=== PATIENT | male | born 1930 | race African-American/Black ===

== ENCOUNTER 2016-08-18 00:20 | Inpatient (IN) | payer MEDICARE ==
[2016-08-18] VITALS (7 sets, daily range): BP systolic 117–146; BP diastolic 71–88
[~2016-08-18] VITALS: Ht 170.2 cm; Wt 65.8 kg
[2016-08-18 01:07] LABS: BASOPHILS % (AUTO) 0.5 % (0.0-2.0); EOSINOPHILS % (AUTO) 1.5 % (0.0-3.0); LYMPHOCYTES % (AUTO) 14.4 % (20.0-45.0); MEAN CORPUSCULAR HEMOGLOBIN 28.8 PG (27.0-31.0); MEAN CORPUSCULAR HGB CONC 32.4 G/DL (32.0-36.0); MEAN CORPUSCULAR VOLUME 89 FL (80-99); MEAN PLATELET VOLUME 7.8 FL (6.5-10.1); MONOCYTES % (AUTO) 14.6 % (1.0-10.0); PLATELET COUNT 174 K/UL (150-450); RED BLOOD COUNT 4.27 M/UL (4.70-6.10); RED CELL DISTRIBUTION WIDTH 12.1 % (11.6-14.8); WHITE BLOOD COUNT 5.8 K/UL (4.8-10.8)
[2016-08-18 01:21] LABS: ALANINE AMINOTRANSFERASE 13 U/L (3-41); ALBUMIN/GLOBULIN RATIO 1.1 (1.0-2.7); ANION GAP 15 (5-15); ASPARTATE AMINO TRANSFERASE 15 U/L (5-40); CALCIUM 9.2 mg/dL (8.6-10.2); CARBON DIOXIDE 27 mEQ/L (20-30); CHLORIDE 100 mEQ/L (98-107); HEMOLYSIS 2; POTASSIUM 4.1 mEQ/L (3.4-4.9); SODIUM 142 mEQ/L (135-145); TOTAL PROTEIN 6.8 g/dL (6.6-8.7)
[2016-08-18] MEDS ORDERED: UNOBMED (01:28)
[2016-08-18 01:37] LABS: TROPONIN I < 0.30 ng/mL (<=0.30)
--- NOTE | 2016-08-18 04:20 | Emergency Room Report ---
History of Present Illness General Chief Complaint: Chest Pain Source: Patient Present Illness HPI 86-year-old male presents to ED complaining of chest pain. Patient states chest pain started yesterday afternoon. Pressure-like, substernal, nonradiating. Lasting for several days then subsiding. Patient denies any chest pain at this time. Given aspirin by EMS. Denies smoking or drug use. No other aggravating or relieving factors. Denies any other associated symptoms Allergies: Coded Allergies: No Known Allergies (Verified , 01/25/10) Patient History Past Medical History: DM, HTN Past Surgical History: none Pertinent Family History: none Social History: Denies: alcohol use, drug use, smoking Immunizations: UTD Reviewed Nursing Documentation: PMH: Agreed, PSxH: Agreed Nursing Documentation-PMH Hx Cardiac Problems: No Hx Hypertension: Yes Hx Pacemaker: No Hx Asthma: No Hx COPD: No Hx Diabetes: Yes Hx Cancer: Yes - Prostate Hx Gastrointestinal Problems: Yes - Acid Reflux Hx Dialysis: No Hx Neurological Problems: No Hx Cerebrovascular Accident: No Hx Seizures: No Review of Systems All Other Systems: negative except mentioned in HPI Physical Exam Vital Signs Date Time Temp Pulse Resp B/P Pulse Ox O2 Delivery O2 Flow Rate FiO2 08/18/16 00:26 97.9 67 17 136/78 98 Room Air Sp02 EP Interpretation: reviewed, normal General Appearance: no apparent distress, alert, GCS 15, non-toxic Head: normocephalic, atraumatic Eyes: bilateral eye PERRL, bilateral eye normal inspection ENT: hearing grossly normal, normal pharynx, no angioedema, normal voice Neck: full range of motion, supple/symm/no masses Respiratory: chest non-tender, lungs clear, normal breath sounds, speaking full sentences Cardiovascular #1: regular rate, rhythm, no edema Cardiovascular #2: 2+ carotid (R), 2+ carotid (L), 2+ radial (R), 2+ radial (L) , 2+ dorsalis pedis (R), 2+ dorsalis pedis (L) Gastrointestinal: normal bowel sounds, non tender, soft, non-distended, no guarding, no rebound Rectal: deferred Genitourinary: normal inspection, no CVA tenderness Musculoskeletal: back normal, gait/station normal, normal range of motion, non- tender Neurologic: alert, oriented x3, responsive, motor strength/tone normal, sensory intact, speech normal Psychiatric: judgement/insight normal, memory normal, mood/affect normal, no suicidal/homicidal ideation Reflexes: 3+ bicep (R), 3+ bicep (L), 3+ tricep (R), 3+ tricep (L), 3+ knee (R) , 3+ knee (L) Skin: normal color, no rash, warm/dry, well hydrated Lymphatic: no adenopathy Medical Decision Making Diagnostic Impression: Primary Impression: ACS (acute coronary syndrome) ER Course Hospital Course 86-year-old male presents ED complaining of intermittent substernal chest pain Differential diagnoses include: CT/unstable angina, contusion, muscle strain, PTX, rib fracture Clinical course Patient placed on stretcher. on director of cardiac cath lab. After initial history and physical I ordered labs, EKG, chest x-ray labs reviewed- no leukocytosis, hb/hct stable, electrolytes ok, trop negative EKG - NSR, no acute ischemic changes Chest x-ray- no acute process Case discussed with Dr. Andres and he agreed to accept the patient to his service for further care and support I. I feel this is a highly complex case requiring extensive working including EKG/Rhythm strip, Xray/CT/US, Blood/urine lab work, repeat exams while in ED, and administration of strong opiates/narcotics for pain control, admission to hospital or close patient follow up. Diagnosis - ACS admitted to telemetry in serious condition Labs Test 08/18/16 00:54 White Blood Count 5.8 K/UL (4.8-10.8) Red Blood Count 4.27 M/UL (4.70-6.10) Hemoglobin 12.3 G/DL (14.2-18.0) Hematocrit 38.0 % (42.0-52.0) Mean Corpuscular Volume 89 FL (80-99) Mean Corpuscular Hemoglobin 28.8 PG (27.0-31.0) Mean Corpuscular Hemoglobin Concent 32.4 G/DL (32.0-36.0) Red Cell Distribution Width 12.1 % (11.6-14.8) Platelet Count 174 K/UL (150-450) Mean Platelet Volume 7.8 FL (6.5-10.1) Neutrophils (%) (Auto) 69.0 % (45.0-75.0) Lymphocytes (%) (Auto) 14.4 % (20.0-45.0) Monocytes (%) (Auto) 14.6 % (1.0-10.0) Eosinophils (%) (Auto) 1.5 % (0.0-3.0) Basophils (%) (Auto) 0.5 % (0.0-2.0) Sodium Level 142 mEQ/L (135-145) Potassium Level 4.1 mEQ/L (3.4-4.9) Chloride Level 100 mEQ/L (98-107) Carbon Dioxide Level 27 mEQ/L (20-30) Anion Gap 15 (5-15) Blood Urea Nitrogen 17 mg/dL (7-23) Creatinine 1.0 mg/dL (0.7-1.2) Estimat Glomerular Filtration Rate mL/min (>60) Glucose Level 153 mg/dL (74-106) Calcium Level 9.2 mg/dL (8.6-10.2) Total Bilirubin 0.3 mg/dL (0.0-1.2) Aspartate Amino Transf (AST/SGOT) 15 U/L (5-40) Alanine Aminotransferase (ALT/SGPT) 13 U/L (3-41) Alkaline Phosphatase 78 U/L (40-129) Total Creatine Kinase 140 U/L (38-174) Troponin I < 0.30 ng/mL (<=0.30) Pro-B-Type Natriuretic Peptide 94 pg/mL (0-450) Total Protein 6.8 g/dL (6.6-8.7) Albumin 3.6 g/dL (3.5-5.2) Globulin 3.2 g/dL Albumin/Globulin Ratio 1.1 (1.0-2.7) EKG Diagnostic Results Rate: normal Rhythm: NSR ST Segments: no acute changes ASA given to the pt in ED: No - given by ems Rhythm Strip Diag. Results EP Interpretation: yes Rhythm: NSR, no PVC's, no ectopy Chest X-Ray Diagnostic Results EP Interpretation: Yes Findings: no consolidation, no effusion, no pneumothorax, no acute cardiopulmonary disease Number of Views: 1 Last Vital Signs Date Time Temp Pulse Resp B/P Pulse Ox O2 Delivery O2 Flow Rate FiO2 08/18/16 03:45 97.5 66 18 145/75 98 Room Air Status: improved Disposition: ADMITTED INPATIENT Condition: Serious Referrals: NON PHYSICIAN (PCP) ALIREZA MCGREGOR M.D. Aug 18, 2016 04:20
[2016-08-18] MEDS ORDERED: Zolpidem 5mg tab ORAL PRN (05:45)
[2016-08-18 05:48] LABS: CKMB 3.7 ng/mL (< 6.7)
[2016-08-18] MEDS: NovoLOG Insulin Flexpen SUBQ SCH ×2 (06:30→12:47)
[2016-08-18] MEDS: Nitroglycerin 2% oint pkt TOPIC SCH ×3 (06:56→21:38)
[2016-08-18] MEDS: Aspirin Baby 81mg NG SCH (08:43)
[2016-08-18] MEDS: Atenolol 25mg tab ORAL SCH ×2 (08:43→18:55)
[2016-08-18] MEDS: Heparin 5000 units/ml inj SUBQ SCH ×2 (08:45→21:38)
[2016-08-18 09:20] LABS: CHOLESTEROL/HDL RATIO 2.2 (3.3-4.4)
[2016-08-18 09:21] LABS: TROPONIN I < 0.30 ng/mL (<=0.30)
--- NOTE | 2016-08-18 10:06 | Diagnostic Imaging Report ---
Indication: FALL, pain Technique: spiral acquisitions obtained through the brain. Angled axial and coronal 5 x 5 mm slices were reconstructed. No IV contrast utilized. Radiation dose was minimized using automated exposure control Total dose length product 1305 mGycm. CTDIvol(s) 70 mGy Comparison: none FINDINGS: No acute hemorrhage or edema. No mass effect or midline shift. There is age-related enlargement of the ventricles and extra axial CSF spaces. There is periventricular deep white matter ischemic change. Normal rodriges-white differentiation. Visualized orbits are unremarkable. There is mucosal disease of the bilateral ethmoid and right maxillary sinuses. Intact calvarium. IMPRESSION: Chronic and age-related changes. Negative for acute intracranial bleed or mass effect This agrees with the preliminary interpretation provided overnight by [facility] teleradiology service. The CT scanner at [facility] is accredited by the [employer] and the scans are performed using protocols designed to limit radiation exposure to as low as reasonably achievable to attain images of sufficient resolution adequate for diagnostic evaluation
[2016-08-18] MEDS ORDERED: AMLODIPINE BESYL5 MG ORAL (13:58)
[2016-08-18] MEDS ORDERED: PRAVASTATIN SOD20 M1 ORAL (14:08)
[2016-08-18] MEDS ORDERED: CETIRIZINE HCL10 MG PO (14:08)
[2016-08-18] MEDS ORDERED: LISINOPRIL5 MG ORAL (14:08)
[2016-08-18] MEDS ORDERED: OXYBUTYNIN CHLOR5 M1 ORAL (14:08)
[2016-08-18] MEDS ORDERED: MECLIZINE HCL12.5 MG ORAL (14:08)
[2016-08-18] MEDS ORDERED: GABAPENTIN300 MG ORAL (14:08)
[2016-08-18] MEDS ORDERED: OMEPRAZOLE20 M3 ORAL (14:08)
[2016-08-18] MEDS ORDERED: BACLOFEN10 MG ORAL (14:08)
[2016-08-18 18:08] LABS: TROPONIN I < 0.30 ng/mL (<=0.30)
--- NOTE | 2016-08-18 20:28 | History and Physical Report ---
DATE OF ADMISSION: 08/18/2016 REASON FOR ADMISSION: Chest pain, possible acute coronary syndrome. HISTORY OF PRESENT ILLNESS: The patient is an 86-year-old male who appears somewhat younger than stated age. The patient presents with chest pain starting yesterday. The patient describes the pain as pressure like, substernal, but nonradiating. The patient notes that the pain has been present for several days. Denies any shortness of breath. Denies any hemoptysis. Denies any cough or sputum. The patient does not have any issue of coronary artery disease. He actually is able to live alone and independently. The patient denies any prior cardiac interventions. He does have risk factors including diabetes and hypertension. Does not currently smoke. PAST MEDICAL HISTORY: Notable for diabetes and hypertension. The patient also has history of prostate cancer, history of acid reflux. MEDICATIONS: Reviewed. ALLERGIES: Reviewed. SOCIAL HISTORY: As mentioned, the patient does not smoke or drink. Lives independently by himself. FAMILY HISTORY: Otherwise noncontributory. REVIEW OF SYSTEMS: Otherwise, negative with the exception of the above. PHYSICAL EXAMINATION: GENERAL: The patient is a well-developed male, otherwise comfortable but the patient does have cough. VITAL SIGNS: Blood pressure 142/88, pulse 62, respiratory rate 20, saturation 95% on room air, temperature 97.2. HEENT: Overall negative. Extraocular movements are grossly intact. Oropharynx otherwise moist. NECK: Supple. No jugular venous distention. LUNGS: Otherwise clear. No rhonchi or wheezes. CARDIAC: Normal S1 and S2. Regular rate and rhythm without murmurs, rubs, or gallop. ABDOMEN: Soft, nontender, and nondistended. EXTREMITIES: No cyanosis or clubbing. No significant edema. NEUROLOGIC: Grossly nonfocal and alert. LABORATORY DATA: Reviewed. CBC notably for hemoglobin 12.3, otherwise fairly benign. Electrolytes fairly normal however blood sugar 153. Troponin is negative. EKG noted and reviewed and at present the patient appears to be in normal sinus rhythm, no acute changes. Chest x-ray no acute changes. IMPRESSION: 1. Chest pain, possible acute coronary syndrome. 2. History of diabetes and hypertension. 3. Evidence of mild cough. RECOMMENDATIONS: Resume home medications. Beta-blockers, nitrates, subcutaneous heparin and aspirin. Serial troponins. Followup EKG. Obtain cardiology evaluation. Obtain blood sugar management and follow clinically. If cleared by Cardiology, we will proceed with discharge planning. Sebastien Andres M.D. DR: Alejandro JOB#: [id number] CC:
--- NOTE | 2016-08-18 23:57 | Cardiology Report ---
APPROVED REPORT EKG Measurement Heart [id number] Sinus rhythm with sinus arrhythmia with occasional premature ventricular complexes Left axis deviation Nonspecific T wave abnormality Abnormal ECG
--- NOTE | 2016-08-18 23:58 | Cardiology Report ---
APPROVED REPORT EKG Measurement Heart [id number] Normal sinus rhythm with sinus arrhythmia Left axis deviation Pulmonary disease pattern Abnormal ECG
[2016-08-19] VITALS: BP 141/79
[2016-08-19 01:00] LABS: TROPONIN I < 0.30 ng/mL (<=0.30)
[2016-08-19 04:00] VITALS: BP 125/76
--- NOTE | 2016-08-19 04:59 | Consultation ---
DATE OF CONSULTATION: 08/18/2016 CARDIOLOGY CONSULTATION REQUESTING PHYSICIAN: Sebastien Andres M.D. REASON FOR CONSULTATION: Acute coronary syndrome. HISTORY OF PRESENT ILLNESS: This is an 86-year-old male, who presented to the emergency room with one day of recurring chest pressure that he described as of an elephant standing on his chest pain. The pain is recurrent, not persistent and resolved in the emergency room with nitroglycerin and morphine. The patient denied any associated shortness of breath. No recent upper respiratory infection, cough, or sputum production. No diuresis. He denies any known history of coronary artery disease. PAST MEDICAL HISTORY: Coronary risk factors include type 2 diabetes mellitus and hypertension. There is also history of prostate cancer and gastroesophageal reflux disease. MEDICATIONS: Prior to admission, reviewed and reconciled. ALLERGIES: None known. SOCIAL HISTORY: Negative for smoking, alcohol, or substance abuse. REVIEW OF SYSTEMS: No fevers or chills. No cough or sputum production. No history of asthma. No history of blood clotting. No history of irregular heartbeats, rheumatic heart disease, or prior heart attack. He does have hypertension well controlled. There is no history of change in bowel habits. He does have a history of prostate cancer. There is no history of seizures or stroke. He denies history of thyroid disorder. His diabetes is managed with oral therapy and he does not know his cholesterol level. PHYSICAL EXAMINATION: GENERAL: The patient is a well-developed, well-nourished, appears younger than stated age. VITAL SIGNS: Blood pressure 142/88, pulse 62, respirations 20, and afebrile. HEENT: Normocephalic and atraumatic. Arcus senilis. Conjunctivae are pink. Sclerae are anicteric. Oropharynx is clear. Mucous membranes are moist. NECK: Supple. Jugular venous pressure is normal. LUNGS: Clear. Carotid upstrokes without delay. No bruits. CARDIAC: Regular rhythm and rate. Normal S1 and S2 with a fourth heart sound. A 1/6 early systolic apical murmur. ABDOMEN: Soft and nontender. EXTREMITIES: Good pulses. No edema. NEUROLOGIC: Nonfocal. LABORATORY AND DIAGNOSTIC DATA: Troponin is negative. EKG sinus rhythm with nonspecific ST changes. Chemistry panel is within normal limits with the exception of glucose of 153. IMPRESSION: 1. Acute coronary syndrome. 2. Hypertension. 3. Type 2 diabetes mellitus. PLAN: 1. Cardiac monitoring. 2. Nasal oxygen. 3. Serial troponins. 4. Oral aspirin. 5. Beta blockade. 6. Topical nitrates. 7. Advance antihypertensive. 8. Echocardiogram will likely pursue noninvasive assessment of coronary flow reserve in order to risk stratify and guide long-term treatment even if noninvasive course of therapy is preferred. Speedy Valentin M.D. DR: JOVANA JOB#: [id number] CC:
[2016-08-19] MEDS: Nitroglycerin 2% oint pkt TOPIC SCH ×2 (06:25→13:24)
[2016-08-19 07:39] VITALS: BP 146/80
--- NOTE | 2016-08-19 08:06 | Diagnostic Imaging Report ---
Indication: Chest pain Technique: One view of the chest Comparison: 05/26/2014 Findings: The heart is enlarged with a left ventricular hypertrophy configuration. Aorta is tortuous ectatic and calcified. Upper mediastinum is unremarkable. There are atelectatic changes at the left lateral lung base. No significant change otherwise Impression: Left basilar atelectasis. No acute process otherwise Cardiomegaly
[2016-08-19 08:16] LABS: ALANINE AMINOTRANSFERASE 10 U/L (3-41); ALBUMIN/GLOBULIN RATIO 1.1 (1.0-2.7); ANION GAP 12 (5-15); ASPARTATE AMINO TRANSFERASE 12 U/L (5-40); CARBON DIOXIDE 28 mEQ/L (20-30); CHLORIDE 101 mEQ/L (98-107); CREATININE 0.9 mg/dL (0.7-1.2); HEMOLYSIS 5; MAGNESIUM 1.8 mg/dL (1.7-2.5); SODIUM 141 mEQ/L (135-145); TOTAL PROTEIN 6.5 g/dL (6.6-8.7)
[2016-08-19] MEDS: Heparin 5000 units/ml inj SUBQ SCH ×2 (09:00→20:12)
[2016-08-19] MEDS: Aspirin Baby 81mg NG SCH (09:12)
[2016-08-19] MEDS: Atenolol 25mg tab ORAL SCH ×2 (09:13→20:11)
[2016-08-19 11:15] VITALS: BP 144/75
--- NOTE | 2016-08-19 11:27 | Cardiology Report ---
APPROVED REPORT EXAM: Two-dimensional and M-mode echocardiogram with Doppler and color Doppler. INDICATION Angina Pectoris M-Mode DIMENSIONS IVSd1.0 (0.7-1.1cm)Left Atrium (MM)4.2 (1.6-4.0cm) LVDd4.7 (3.5-5.6cm)Aortic Root3.2 (2.0-3.7cm) PWd1.2 (0.7-1.1cm)Aortic Cusp Exc.1.7 (1.5-2.0cm) LVDs3.3 (2.5-4.0cm) PWs1.6 cm Technically difficult study due to poor acoustic windows. Study quality precludes accurate assessment of regional wall motion. Normal left ventricular chamber size, systolic function and wall motion. Left ventricular ejection fraction estimated to be 55 %. No evidence of ventricular hypertrophy No evidence of pericardial fat or effusion. Mild right atrial enlargement. Right ventricular chamber size is within normal limits. Left atrial chamber size is within normal limits. Mild focal aortic valve sclerosis with adequate cusp excursion. Mildly thickened mitral valve leaflets with normal excursion. Mild mitral annulus and aortic root calcification. Normal pulmonic valve structure. Normal tricuspid valve structure. Subcostal views not obtainable. A color flow and spectral Doppler study was performed and revealed: Trace aortic regurgitation. Mild to moderate mitral regurgitation. Mitral diastolic velocities suggest reduced left ventricular relaxation (Grade I). Mild tricuspid regurgitation. Tricuspid systolic velocities suggests peak right ventricular systolic pressure of 46 mmHg, consistent with moderate pulmonary hypertension. Trace pulmonic regurgitation present.
--- NOTE | 2016-08-19 11:42 | General Progress Note ---
Assessment/Plan Assessment/Plan IMPRESSION: 1. Chest pain, possible acute coronary syndrome. 2. History of diabetes and hypertension. 3. Evidence of mild cough with improvement 4. pulmonary hypertension PLAN care noted defer to cardiology possible stress vs home discharge troponins noted tele stable all reviewed with patient impression, plan, and exam edited and reviewed in detail care discussed with RN Subjective Allergies: Coded Allergies: No Known Allergies (Verified , 01/25/10) Subjective no chest pain at present comfortable and able to ambulate Objective Last 24 Hour Vital Signs Date Time Temp Pulse Resp B/P Pulse Ox O2 Delivery O2 Flow Rate FiO2 08/19/16 11:15 98.1 65 20 144/75 97 Room Air 08/19/16 09:55 97 Nasal Cannula 2.0 28 08/19/16 09:55 Nasal Cannula 2.0 28 08/19/16 09:13 66 146/80 08/19/16 08:25 66 08/19/16 07:39 97.7 66 20 146/80 100 Nasal Cannula 2.0 08/19/16 06:25 158/87 08/19/16 04:00 62 08/19/16 04:00 97.9 64 18 125/76 95 Room Air 08/19/16 00:00 97.9 58 16 141/79 95 Room Air 08/19/16 00:00 64 08/18/16 21:38 144/84 08/18/16 20:00 61 08/18/16 20:00 97.7 61 20 144/84 96 Nasal Cannula 2.0 08/18/16 19:48 98 Nasal Cannula 2.0 28 08/18/16 19:48 Nasal Cannula 2.0 28 08/18/16 18:55 63 140/73 08/18/16 16:00 59 08/18/16 16:00 97.4 63 20 140/73 98 Room Air 08/18/16 13:34 117/73 08/18/16 12:05 89 Intake and Output 08/18/16 08/19/16 19:00 07:00 Intake Total 120 ml 300 ml Output Total 400 ml 1700 ml Balance -280 ml -1400 ml Intake Oral 120 ml 300 ml Output Urine Total 400 ml 1700 ml Laboratory Tests 08/18/16 16:00: Troponin I < 0.30 08/19/16 00:25: Troponin I < 0.30 08/19/16 06:40: Sodium Level 141, Potassium Level 4.0, Chloride Level 101, Carbon Dioxide Level 28, Anion Gap 12, Blood Urea Nitrogen 11, Creatinine 0.9, Estimat Glomerular Filtration Rate , Glucose Level 125H, Calcium Level 9.0, Magnesium Level 1.8, Total Bilirubin 0.2, Aspartate Amino Transf (AST/SGOT) 12, Alanine Aminotransferase (ALT/SGPT) 10, Alkaline Phosphatase 78, Pro-B-Type Natriuretic Peptide 304, Total Protein 6.5L, Albumin 3.5, Globulin 3.0, Albumin/Globulin Ratio 1.1, Thyroid Stimulating Hormone (TSH) 1.210 Height (Feet): 5 Height (Inches): 7.00 Weight (Pounds): 145 Objective GENERAL: The patient is a well-developed male, otherwise comfortable but the patient does have cough. HEENT: Overall negative. Extraocular movements are grossly intact. Oropharynx otherwise moist. NECK: Supple. No jugular venous distention. LUNGS: Otherwise clear. No rhonchi or wheezes. CARDIAC: Normal S1 and S2. Regular rate and rhythm without murmurs, rubs, or gallop. ABDOMEN: Soft, nontender, and nondistended. EXTREMITIES: No cyanosis or clubbing. No significant edema. NEUROLOGIC: Grossly nonfocal and alert. ambulatory HEATHER CLOUD Aug 19, 2016 11:42
[2016-08-19] MEDS ORDERED: Lisinopril 20mg tab ORAL ONE (14:00)
[2016-08-19 16:00] VITALS: BP 156/79
[2016-08-19] MEDS: Azithromycin 500 MG in D5W 275 ML IV SCH (16:06)
[2016-08-19] MEDS: DuoNeb 0.5-3(2.5)mg/3ml neb HHN SCH ×2 (20:54→22:38)
[2016-08-20] VITALS: BP 146/72
--- NOTE | 2016-08-20 02:08 | Progress Note ---
DATE: 08/19/2016 CARDIOLOGY PROGRESS NOTE SUBJECTIVE: The patient has congestion and cough. He notes chest pain with cough. Monitored rhythm sinus. OBJECTIVE: GENERAL: Afebrile. VITAL SIGNS: Blood pressure 144/75, pulse 65, and respirations 20. LUNGS: Coarse breath sounds with rhonchi. HEART: Regular rhythm and rate. Normal S1 and S2 with a fourth heart sound. ABDOMEN: Soft and nontender. EXTREMITIES: No edema. DIAGNOSTIC DATA: Echocardiogram showed normal ejection fraction, mild mitral regurgitation, and pulmonary hypertension. Troponin is negative. IMPRESSION: 1. Possible acute bronchitis with paroxysmal bronchospasm. 2. Chest pain possibly anginal but may also be pleuritic related to pulmonary symptoms. 3. Hypertensive heart disease. 4. Pulmonary hypertension. 5. Degenerative mitral regurgitation. 6. Type 2 diabetes mellitus. PLAN: 1. Angiotensin-converting enzyme inhibitor for blood pressure management in the setting of mitral regurgitation. 2. Check radiograph of the chest. 3. Inhaled bronchodilator therapy initiated. 4. Empiric antibiotics. 5. DVT prophylaxis. 6. Differ myocardial perfusion scan until pulmonary symptoms improved. Speedy Valentin M.D. DR: JOVANA JOB#: [id number] CC:
[2016-08-20] MEDS: DuoNeb 0.5-3(2.5)mg/3ml neb HHN SCH ×6 (02:59→23:23)
[2016-08-20 04:00] VITALS: BP 129/84
[2016-08-20 07:53] VITALS: BP 145/68
[2016-08-20] MEDS: Lisinopril 20mg tab ORAL SCH (08:16)
[2016-08-20] MEDS: Atenolol 25mg tab ORAL SCH ×2 (08:16→17:32)
[2016-08-20] MEDS: Heparin 5000 units/ml inj SUBQ SCH ×2 (08:23→20:27)
[2016-08-20] MEDS: Aspirin Baby 81mg NG SCH (08:27)
[2016-08-20] MEDS ORDERED: CETIRIZINE HCL10 MG PO (10:14)
[2016-08-20 11:17] VITALS: BP 140/67
--- NOTE | 2016-08-20 14:27 | Diagnostic Imaging Report ---
Indication: Abnormal chest sounds Technique: One view of the chest Comparison: 08/18/2016 Findings: Improved inspiration currently, resolved left basilar atelectasis. Lungs and pleural space are clear. Heart remains borderline enlarged. Aorta is tortuous and calcified Impression: No acute process
--- NOTE | 2016-08-20 16:08 | General Progress Note ---
Assessment/Plan Assessment/Plan IMPRESSION: 1. Chest pain, possible acute coronary syndrome. 2. History of diabetes and hypertension. 3. Evidence of mild cough with improvement 4. pulmonary hypertension PLAN care noted defer to cardiology for discharge possible stress vs home discharge pending troponins noted chest xr negative tele stable all reviewed with patient impression, plan, and exam edited and reviewed in detail care discussed with RN Subjective Allergies: Coded Allergies: No Known Allergies (Verified , 01/25/10) Subjective no chest pain at present comfortable and able to ambulate some congestion Objective Last 24 Hour Vital Signs Date Time Temp Pulse Resp B/P Pulse Ox O2 Delivery O2 Flow Rate FiO2 08/20/16 15:10 Room Air 08/20/16 15:10 Room Air 08/20/16 12:00 72 08/20/16 11:17 97.3 71 20 140/67 96 Room Air 08/20/16 11:16 Room Air 08/20/16 11:16 Room Air 08/20/16 09:40 55 08/20/16 09:18 97.1 08/20/16 08:16 145/68 08/20/16 08:16 60 145/68 08/20/16 08:00 62 08/20/16 07:53 97.1 60 20 145/68 95 Room Air 08/20/16 07:00 Room Air 08/20/16 07:00 Room Air 08/20/16 07:00 Room Air 08/20/16 07:00 98 Room Air 08/20/16 04:00 61 08/20/16 04:00 97.5 70 16 129/84 100 Nasal Cannula 2.0 08/20/16 02:59 Nasal Cannula 2.0 08/20/16 02:59 Nasal Cannula 2.0 08/20/16 02:59 28 08/20/16 00:00 57 08/20/16 00:00 97.7 70 12 146/72 100 Room Air 2.0 08/19/16 22:46 65 12 100 Nasal Cannula 2.0 08/19/16 22:38 70 16 99 Nasal Cannula 2.0 08/19/16 21:02 58 12 100 Nasal Cannula 2.0 08/19/16 20:54 99 Nasal Cannula 2.0 08/19/16 20:54 62 16 99 Nasal Cannula 2.0 08/19/16 20:54 Nasal Cannula 2.0 28 08/19/16 20:11 61 156/79 08/19/16 20:00 64 Intake and Output 08/19/16 08/20/16 19:00 07:00 Intake Total 755 ml 600 ml Output Total 350 ml 650 ml Balance 405 ml -50 ml Intake Oral 480 ml 600 ml IV Total 275 ml Output Urine Total 350 ml 650 ml # Voids 4 Height (Feet): 5 Height (Inches): 7.00 Weight (Pounds): 145 Objective GENERAL: The patient is a well-developed male, otherwise comfortable but the patient does have cough. HEENT: Overall negative. Extraocular movements are grossly intact. Oropharynx otherwise moist. NECK: Supple. No jugular venous distention. LUNGS: minimal rhonchi but no wheezes. adequate air entry CARDIAC: Normal S1 and S2. Regular rate and rhythm without murmurs, rubs, or gallop. ABDOMEN: Soft, nontender, and nondistended. EXTREMITIES: No cyanosis or clubbing. No significant edema. NEUROLOGIC: Grossly nonfocal and alert. ambulatory HEATHER CLOUD Aug 20, 2016 16:08
[2016-08-20] MEDS: Azithromycin 500 MG in D5W 275 ML IV SCH (16:34)
[2016-08-20] MEDS: Norco 5mg/325mg tab ORAL PRN (17:31)
[2016-08-20 20:00] VITALS: BP 131/72
[2016-08-21 00:10] VITALS: BP 140/72
[2016-08-21] MEDS: DuoNeb 0.5-3(2.5)mg/3ml neb HHN SCH ×6 (03:00→23:48)
[2016-08-21 04:17] VITALS: BP 150/88
--- NOTE | 2016-08-21 06:17 | Progress Note ---
DATE: 08/20/2016 CARDIOLOGY PROGRESS NOTE SUBJECTIVE: The patient has less cough, less congestion. No chest pain today. OBJECTIVE: VITAL SIGNS: Blood pressure 140/67, pulse 71, and respirations 20. NECK: Supple. LUNGS: With good breath sounds. No wheezing. CARDIAC: Regular rhythm rate. Normal S1, S2 with a fourth heart sound. ABDOMEN: Soft. EXTREMITIES: No edema. DIAGNOSTIC DATA: Chest x-ray with no acute process. IMPRESSION: 1. Anginal syndrome. 2. Acute bronchitis. 3. Paroxysmal bronchospasm. 4. Hypertensive heart disease. 5. Degenerative valve disease with mitral regurgitation. 6. Mild pulmonary hypertension. PLAN: Continue antibiotics, bronchodilators, anti-platelet and anti-lipid drugs, titrate antihypertensive and afterload reduction regimen, dobutamine echocardiogram for assessment of coronary flow reserve. Speedy Valentin M.D. DR: JAIDEN JOB#: [id number] CC:
[2016-08-21 08:00] VITALS: BP 142/70
--- NOTE | 2016-08-21 08:07 | General Progress Note ---
Assessment/Plan Assessment/Plan IMPRESSION: 1. Chest pain, possible acute coronary syndrome. 2. History of diabetes and hypertension. 3. Evidence of mild cough with improvement 4. pulmonary hypertension PLAN care noted defer to cardiology for discharge await stress today hope to dc home if negative findings troponins noted chest xr negative tele stable all reviewed with patient and cardiology impression, plan, and exam edited and reviewed in detail care discussed with RN Subjective Allergies: Coded Allergies: No Known Allergies (Verified , 01/25/10) Subjective stress test ordered comfortable and anxious to go home reduced congestion Objective Last 24 Hour Vital Signs Date Time Temp Pulse Resp B/P Pulse Ox O2 Delivery O2 Flow Rate FiO2 08/21/16 07:33 60 18 98 Room Air 08/21/16 07:33 98 Room Air 08/21/16 07:33 Room Air 08/21/16 04:17 97.0 73 20 150/88 94 Room Air 08/21/16 04:00 82 08/21/16 03:42 Room Air 08/21/16 03:41 Room Air 08/21/16 00:10 98.2 84 20 140/72 97 Room Air 08/21/16 00:00 5 08/20/16 23:35 82 18 98 Room Air 21 08/20/16 23:24 21 08/20/16 23:24 79 18 96 Room Air 21 08/20/16 20:00 87 08/20/16 20:00 98.4 77 19 131/72 95 Room Air 08/20/16 19:36 76 18 97 Room Air 21 08/20/16 19:29 97 Room Air 08/20/16 19:29 Room Air 08/20/16 19:20 76 18 97 Room Air 21 08/20/16 19:20 21 08/20/16 17:32 68 123/75 08/20/16 16:07 97.5 68 20 99 Room Air 08/20/16 16:00 71 08/20/16 15:10 Room Air 08/20/16 15:10 Room Air 08/20/16 12:00 72 08/20/16 11:17 97.3 71 20 140/67 96 Room Air 08/20/16 11:16 Room Air 08/20/16 11:16 Room Air 08/20/16 09:40 55 08/20/16 09:18 97.1 08/20/16 08:16 145/68 4/5/17 08:16 60 145/68 Intake and Output 08/20/16 08/21/16 19:00 07:00 Intake Total 755 ml 200 ml Output Total 600 ml Balance 155 ml 200 ml Intake Oral 480 ml 200 ml IV Total 275 ml Output Urine Total 600 ml # Voids 13 Height (Feet): 5 Height (Inches): 7.00 Weight (Pounds): 145 Objective GENERAL: The patient is a well-developed male, otherwise comfortable but the patient does have cough. HEENT: Overall negative. Extraocular movements are grossly intact. Oropharynx otherwise moist. NECK: Supple. No jugular venous distention. LUNGS: resolved rhonchi but no wheezes. adequate air entry CARDIAC: Normal S1 and S2. Regular rate and rhythm without murmurs, rubs, or gallop. ABDOMEN: Soft, nontender, and nondistended. EXTREMITIES: No cyanosis or clubbing. No significant edema. NEUROLOGIC: Grossly nonfocal and alert. ambulatory HEATHER CLOUD Aug 21, 2016 08:07
[2016-08-21] MEDS: Aspirin Baby 81mg NG SCH (08:49)
[2016-08-21] MEDS: Heparin 5000 units/ml inj SUBQ SCH ×2 (08:50→21:04)
[2016-08-21] MEDS: Lisinopril 20mg tab ORAL SCH (08:51)
[2016-08-21] MEDS: Atenolol 25mg tab ORAL SCH ×2 (08:53→17:41)
[2016-08-21] MEDS: Norco 5mg/325mg tab ORAL PRN (10:32)
[2016-08-21 12:00] VITALS: BP 128/76
[2016-08-21] MEDS: Norco 10mg/325mg tab ORAL PRN (14:52)
[2016-08-21 16:00] VITALS: BP 125/65
[2016-08-21] MEDS: Azithromycin 500 MG in D5W 275 ML IV SCH (16:42)
--- NOTE | 2016-08-21 17:03 | Diagnostic Imaging Report ---
Indication: Pain and swelling Technique: 3 views right foot Comparison: none Findings: There severe degenerative changes of the first metatarsal phalangeal joint. There is severe joint space narrowing as well as extensive proliferative change. There is very slight hallux longus. The remaining joint spaces are preserved. No acute fractures. No dislocations. There is a small plantar spur. There are vascular calcifications Impression: No acute bony trauma Degenerative changes, as described
[2016-08-21 20:00] VITALS: BP 117/92
[2016-08-21] MEDS ORDERED: DOBUTamine 250mg/250ml Premix IV ONE (22:45)
[2016-08-22] VITALS: BP 127/62
[2016-08-22] MEDS: DuoNeb 0.5-3(2.5)mg/3ml neb HHN SCH ×6 (03:00→23:00)
--- NOTE | 2016-08-22 03:09 | Progress Note ---
DATE: 08/21/2016 CARDIOLOGY PROGRESS NOTE: SUBJECTIVE: The patient is complaining of right foot pain. X-ray of the foot reveals no acute process. Uric acid level was 4.4, which is normal. The patient is scheduled for dobutamine stress test today. No recurring chest pain has been noted. OBJECTIVE: VITAL SIGNS: Blood pressure is 125/65, pulse rate 86, respiratory rate 16, oxygen saturation 97% on room air, and afebrile. NECK: Supple. LUNGS: Clear. CARDIAC: Regular rhythm and rate. Normal S1 and S2 with a fourth heart sound. A 1/6 systolic murmur at the apex. ABDOMEN: Soft and nontender. EXTREMITIES: No edema. Foot with tenderness with no obvious trauma. IMPRESSION: 1. Probable arthritic foot pain. 2. Anginal syndrome. 3. Mitral regurgitation. 4. Hypertensive heart disease. 5. Paroxysmal bronchospasm. PLAN: 1. Analgesics. 2. Nonsteroidal anti-inflammatories. 3. Await results of the dobutamine stress echocardiogram. 4. Continue current cardiovascular regimen, pending final results of ischemia workup. Speedy Valentin M.D. DR: Yulissa JOB#: [id number] CC:
[2016-08-22 04:00] VITALS: BP 142/82
[2016-08-22] MEDS: Norco 10mg/325mg tab ORAL PRN (05:19)
[2016-08-22 08:00] VITALS: BP 114/60
--- NOTE | 2016-08-22 08:24 | General Progress Note ---
Assessment/Plan Assessment/Plan IMPRESSION: 1. Chest pain, possible acute coronary syndrome. 2. History of diabetes and hypertension. 3. Evidence of mild cough with improvement 4. pulmonary hypertension 5. foot pain PLAN care noted defer to cardiology for discharge await stress results hope to dc home today consider podiatry if unable to ambulate home meds reviewed impression, plan, and exam edited and reviewed in detail care discussed with RN Subjective Allergies: Coded Allergies: No Known Allergies (Verified , 01/25/10) Subjective stress test completed foot pain reviewed results Objective Last 24 Hour Vital Signs Date Time Temp Pulse Resp B/P Pulse Ox O2 Delivery O2 Flow Rate FiO2 08/22/16 07:44 80 14 99 Room Air 08/22/16 07:42 96 Room Air 08/22/16 07:42 Room Air 08/22/16 07:40 79 14 96 Room Air 08/22/16 04:00 98.2 73 18 142/82 97 Room Air 08/22/16 04:00 70 08/22/16 03:20 Room Air 08/22/16 03:20 Room Air 08/22/16 00:00 98.2 74 16 127/62 96 Room Air 08/22/16 00:00 74 08/21/16 23:49 Room Air 08/21/16 23:48 Room Air 08/21/16 20:00 99.0 85 17 117/92 95 Room Air 08/21/16 20:00 85 08/21/16 19:08 75 16 99 Room Air 21 08/21/16 19:02 96 Room Air 08/21/16 19:02 Room Air 08/21/16 19:00 74 16 96 Room Air 21 08/21/16 17:41 77 125/65 08/21/16 16:00 86 08/21/16 16:00 97.9 77 16 125/65 97 Room Air 08/21/16 15:51 97.9 08/21/16 15:46 72 16 98 Room Air 21 08/21/16 15:33 76 16 98 Room Air 21 08/21/16 15:33 21 08/21/16 12:00 94 08/21/16 12:00 96.8 72 18 128/76 97 Room Air 08/21/16 11:14 77 18 98 Room Air 08/21/16 11:05 78 18 98 Room Air 08/21/16 08:53 66 142/70 08/21/16 08:51 142/70 Intake and Output 08/21/16 08/22/16 19:00 07:00 Intake Total 380 ml Output Total 600 ml 500 ml Balance -600 ml -120 ml Intake Oral 380 ml Output Urine Total 600 ml 500 ml # Voids 2 3 Laboratory Tests 08/21/16 12:45: Uric Acid 4.4 Height (Feet): 5 Height (Inches): 7.00 Weight (Pounds): 145 Objective GENERAL: The patient is a well-developed male, otherwise comfortable but the patient does have cough. HEENT: Overall negative. Extraocular movements are grossly intact. Oropharynx otherwise moist. NECK: Supple. No jugular venous distention. LUNGS: no rhonchi and no wheezes. adequate air entry CARDIAC: Normal S1 and S2. Regular rate and rhythm without murmurs, rubs, or gallop. ABDOMEN: Soft, nontender, and nondistended. EXTREMITIES: No cyanosis or clubbing. No significant edema. right foot pain and tenderness NEUROLOGIC: Grossly nonfocal and alert. ambulatory HEATHER CLOUD Aug 22, 2016 08:24
[2016-08-22] MEDS: Heparin 5000 units/ml inj SUBQ SCH ×2 (09:00→22:18)
[2016-08-22] MEDS: Aspirin Baby 81mg NG SCH (09:46)
[2016-08-22] MEDS: Atenolol 25mg tab ORAL SCH ×3 (09:47→22:23)
[2016-08-22] MEDS: Lisinopril 20mg tab ORAL SCH (09:47)
[2016-08-22 12:00] VITALS: BP 107/71
[2016-08-22] MEDS ORDERED: MYLANTA30 M1 ORAL (15:30)
[2016-08-22] MEDS ORDERED: LISINOPRIL20 MG ORAL (15:31)
[2016-08-22] MEDS ORDERED: TENORMIN25 MG ORAL (15:32)
[2016-08-22] MEDS ORDERED: ASPIRIN81 M3 PO (15:33)
[2016-08-22 16:00] VITALS: BP 133/80
[2016-08-22] MEDS: Azithromycin 250mg tab ORAL SCH (18:00)
[2016-08-22 19:00] VITALS: BP 151/71
[2016-08-23] VITALS: BP 125/63
--- NOTE | 2016-08-23 01:37 | Progress Note ---
DATE: 08/22/2016 CARDIOLOGY PROGRESS NOTE SUBJECTIVE: The patient is , anxious to go home. Brother and friend are at bedside to pick him up. The patient has no chest pain or shortness of breath. He noted some swelling in his left eye that began about an hour ago, around noon. The patient's family members stated that he has frequent allergies to foods and has had this before, and uses Benadryl, this was given. OBJECTIVE: VITAL SIGNS: Blood pressure 114/60, pulse 79, respirations 20, and afebrile. HEENT: Swelling of left eyelid. No bruising. Oropharynx is clear. NECK: Supple. LUNGS: Clear. CARDIAC: Regular rhythm rate. Normal S1 and S2 with a fourth heart sound. ABDOMEN: Soft. EXTREMITIES: Without edema. LABORATORY DATA: Dobutamine echocardiogram negative for ischemia. IMPRESSION: 1. Left eye edema, no signs of trauma, possible inflammatory reaction, possible allergic reaction, or unknown injury. 2. Congestive heart failure, compensated. 3. Valvular regurgitation, degenerative and compensated. 4. Anginal episodes with no signs of flow-limiting coronary disease. PLAN: Antihistamine, observation, if stable can discharge. Cardiovascular regimen discussed in detail with the patient and family members. Outpatient Cardiology followup offered. Speedy Valentin M.D. DR: HAILEY JOB#: [id number] CC:
[2016-08-23 04:00] VITALS: BP 146/73
[2016-08-23] MEDS: DuoNeb 0.5-3(2.5)mg/3ml neb HHN SCH ×4 (04:30→23:19)
[2016-08-23 07:52] VITALS: BP 148/83
--- NOTE | 2016-08-23 08:48 | General Progress Note ---
Assessment/Plan Assessment/Plan IMPRESSION: 1. Chest pain, possible acute coronary syndrome. 2. History of diabetes and hypertension. 3. Evidence of mild cough with improvement 4. pulmonary hypertension 5. foot pain 6. left eyelid swelling PLAN care noted cleared for discharge by cardiology negative stress results hope to dc home today patient wants to go home d/w brother will try to convince him to go to rehab as he is unsteady impression, plan, and exam edited and reviewed in detail care discussed with RN Subjective Allergies: Coded Allergies: No Known Allergies (Verified , 01/25/10) Subjective dc held left eye swelling minimal Objective Last 24 Hour Vital Signs Date Time Temp Pulse Resp B/P Pulse Ox O2 Delivery O2 Flow Rate FiO2 08/23/16 07:52 97.7 70 18 148/83 97 Room Air 08/23/16 04:00 97.0 63 20 146/73 100 Room Air 08/23/16 04:00 62 08/23/16 03:16 Room Air 21 08/23/16 03:15 Room Air 08/23/16 00:00 97.7 66 18 125/63 97 Room Air 08/23/16 00:00 61 08/22/16 23:09 Room Air 08/22/16 23:09 Room Air 21 08/22/16 22:23 65 151/71 08/22/16 20:00 63 08/22/16 19:30 Room Air 21 08/22/16 19:30 96 Room Air 21 08/22/16 19:30 Room Air 08/22/16 19:30 Room Air 21 08/22/16 19:00 97.3 65 20 151/71 94 Room Air 08/22/16 18:00 74 133/80 08/22/16 16:00 98.2 74 20 133/80 96 Room Air 08/22/16 16:00 66 08/22/16 15:00 Room Air 08/22/16 15:00 Room Air 08/22/16 12:00 76 08/22/16 12:00 97.2 81 18 107/71 97 Room Air 08/22/16 12:00 78 08/22/16 11:01 Room Air 08/22/16 11:01 Room Air 08/22/16 09:47 114/60 08/22/16 09:47 79 114/60 Intake and Output 08/22/16 08/23/16 19:00 07:00 Output Total 400 ml Balance -400 ml Output Urine Total 400 ml # Voids 3 Height (Feet): 5 Height (Inches): 7.00 Weight (Pounds): 145 Objective GENERAL: The patient is a well-developed male, otherwise comfortable but the patient does have cough. HEENT: Overall negative. Extraocular movements are grossly intact. Oropharynx otherwise moist. minimal left eyelid swelling NECK: Supple. No jugular venous distention. LUNGS: no rhonchi and no wheezes. adequate air entry CARDIAC: Normal S1 and S2. Regular rate and rhythm without murmurs, rubs, or gallop. ABDOMEN: Soft, nontender, and nondistended. EXTREMITIES: No cyanosis or clubbing. No significant edema. right foot pain and tenderness NEUROLOGIC: Grossly nonfocal and alert. ambulatory but unsteady gait HEATHER CLOUD Aug 23, 2016 08:48
[2016-08-23] MEDS: Atenolol 25mg tab ORAL SCH ×2 (08:51→18:53)
[2016-08-23] MEDS: Aspirin Baby 81mg NG SCH (08:51)
[2016-08-23] MEDS: Lisinopril 20mg tab ORAL SCH (08:52)
[2016-08-23] MEDS: Heparin 5000 units/ml inj SUBQ SCH ×2 (08:52→22:12)
[2016-08-23] MEDS ORDERED: Bisacodyl EC 5mg tab ORAL PRN (10:15)
[2016-08-23] MEDS ORDERED: Milk of Magnesia 30ml Ud ORAL PRN (10:15)
--- NOTE | 2016-08-23 10:26 | Diagnostic Imaging Report ---
Indication: Head pain and altered mental status Technique: Continuous helical CT scanning of the head was performed utilizing automated exposure control without intravenous contrast material. Axial and coronal reconstructions were obtained. Comparison: 08/18/16 CT dose: Total DLP 1284 mGycm; CTDI vol 70.4 mGy Findings: There is no acute intracranial hemorrhage, mass effect or cortical edema. The ventricles, cisterns and sulci are prominent consistent with atrophy. Periventricular hypoattenuation is seen, a nonspecific finding. The posterior fossa and fourth ventricle are unremarkable. Sellar and suprasellar regions are grossly unremarkable. There is mucosal paranasal sinus disease. Left periorbital soft tissue swelling is noted. There is no skull fracture. Impression: No evidence of acute intracranial hemorrhage, mass effect or cortical edema. Left periorbital soft tissue swelling without skull fracture. Other stable findings as above. Findings are concordant with the preliminary report. The CT scanner at [facility] is accredited by the [employer] and the scans are performed using protocols designed to limit radiation exposure to as low as reasonably achievable to attain images of sufficient resolution adequate for diagnostic evaluation.
[2016-08-23 11:55] VITALS: BP 131/70
[2016-08-23 16:00] VITALS: BP 115/80
[2016-08-23] MEDS: Azithromycin 250mg tab ORAL SCH (18:53)
[2016-08-23 20:00] VITALS: BP 108/59
[2016-08-24] VITALS: BP 125/69
--- NOTE | 2016-08-24 00:28 | Progress Note ---
DATE: 08/23/2016 CARDIOLOGY PROGRESS NOTE SUBJECTIVE: The patient without chest pain or shortness of breath. Discharge held due to weakness of the lower extremities and left eye swelling yesterday. CAT scan of the brain revealed left eye soft-tissue swelling, but no other abnormalities. OBJECTIVE: VITAL SIGNS: Blood pressure 108/59, pulse 72, respirations 20, afebrile, and room air oxygen saturation is 96%. HEENT: Left eye with minimal residual swelling. No bruising. NECK: Supple. LUNGS: Clear. CARDIAC: Regular rhythm and rate. Normal S1 and S2 with a fourth heart sound. A 1/6 systolic murmur at apex. ABDOMEN: Soft and nontender. EXTREMITIES: Without edema. NEUROLOGIC: Symmetric weakness. No asterixis. IMPRESSION: 1. Left eye swelling. 2. Functional decline. 3. Hypertensive heart disease. 4. Degenerative valve disease with mitral regurgitation. 5. Anginal syndrome with no signs of flow-limiting coronary artery disease. PLAN: 1. Physical and occupational therapy. 2. Maintain current cardiovascular regimen. 3. Local care to the left eye. 4. Fall precautions. 5. No additional cardiovascular workup planned at this time. Speedy Valentin M.D. DR: SARIKA JOB#: [id number] CC:
[2016-08-24] MEDS: Heparin 5000 units/ml inj SUBQ SCH ×2 (00:30→08:09)
[2016-08-24] MEDS ORDERED: Norco 10mg/325mg tab ORAL PRN (02:45)
[2016-08-24] MEDS: DuoNeb 0.5-3(2.5)mg/3ml neb HHN SCH ×2 (03:00→07:56)
[2016-08-24 04:00] VITALS: BP 124/76
[2016-08-24] MEDS ORDERED: Zolpidem 5mg tab ORAL PRN (05:45)
[2016-08-24 07:44] VITALS: BP 111/50
[2016-08-24 08:09] VITALS: BP 111/50
[2016-08-24] MEDS ORDERED: Lisinopril 20mg tab ORAL SCH (09:00)
[2016-08-24] MEDS ORDERED: Atenolol 25mg tab ORAL SCH (09:00)
[2016-08-24] MEDS ORDERED: Aspirin Baby 81mg NG SCH (09:00)
--- NOTE | 2016-08-24 09:29 | General Progress Note ---
Assessment/Plan Assessment/Plan IMPRESSION: 1. Chest pain, possible acute coronary syndrome. 2. History of diabetes and hypertension. 3. Evidence of mild cough with improvement 4. pulmonary hypertension 5. foot pain 6. left eyelid swelling 7. constipation/vomiting PLAN care noted dc today patient wants to go home d/w brother home health on dc refuses rehab; aware of concerns of falls impression, plan, and exam edited and reviewed in detail care discussed with RN Subjective Allergies: Coded Allergies: No Known Allergies (Verified , 01/25/10) Subjective dc held due to vomiting x 1 left eye swelling minimal now improved Objective Last 24 Hour Vital Signs Date Time Temp Pulse Resp B/P Pulse Ox O2 Delivery O2 Flow Rate FiO2 08/24/16 08:09 111/50 08/24/16 08:09 60 111/50 08/24/16 07:44 97.5 60 18 111/50 100 Room Air 08/24/16 04:00 97.1 69 18 124/76 95 Room Air 08/24/16 03:37 Room Air 21 08/24/16 03:37 Room Air 08/24/16 00:00 97.0 60 18 125/69 98 Room Air 08/23/16 23:22 69 16 97 Room Air 21 08/23/16 23:21 66 16 93 Room Air 21 08/23/16 20:00 97.9 72 20 108/59 96 Room Air 08/23/16 19:22 72 16 98 Room Air 21 08/23/16 19:21 Room Air 21 08/23/16 19:21 69 16 95 Room Air 21 08/23/16 19:20 95 Room Air 21 08/23/16 18:53 79 146/80 08/23/16 16:00 97.8 57 21 115/80 98 Room Air 08/23/16 12:00 63 08/23/16 11:55 97.5 65 18 131/70 96 Room Air Intake and Output 08/23/16 08/24/16 19:00 07:00 Intake Total 240 ml 660 ml Output Total 150 ml 300 ml Balance 90 ml 360 ml Intake Oral 240 ml 660 ml Output Urine Total 150 ml 300 ml # Voids 1 Height (Feet): 5 Height (Inches): 7.00 Weight (Pounds): 145 Objective GENERAL: The patient is a well-developed male, otherwise comfortable HEENT: Overall negative. Extraocular movements are grossly intact. Oropharynx otherwise moist. minimal left eyelid swelling NECK: Supple. No jugular venous distention. LUNGS: no rhonchi and no wheezes. adequate air entry CARDIAC: Normal S1 and S2. Regular rate and rhythm without murmurs, rubs, or gallop. ABDOMEN: Soft, nontender, and nondistended. EXTREMITIES: No cyanosis or clubbing. No significant edema. right foot pain and tenderness NEUROLOGIC: Grossly nonfocal and alert. ambulatory HEATHER CLOUD Aug 24, 2016 09:29
[2016-08-24] MEDS ORDERED: Bisacodyl EC 5mg tab ORAL PRN (10:15)
[2016-08-24] MEDS ORDERED: Milk of Magnesia 30ml Ud ORAL PRN (10:15)
[2016-08-24] MEDS ORDERED: Azithromycin 250mg tab ORAL SCH (18:00)
--- NOTE | 2016-08-25 05:18 | Progress Note ---
DATE: 08/24/2016 CARDIOLOGY PROGRESS NOTE SUBJECTIVE: The patient has no chest pain or shortness of breath. He is anxious to return home and will pursue rehabilitation there. He has refused at custodial facility. OBJECTIVE: VITAL SIGNS: Blood pressure 124/76, pulse 69, respirations 18, afebrile, room air oxygen saturation 95% to 100%. HEENT: Left eye swelling has nearly recovered completely. NECK: Supple. LUNGS: Clear. CARDIAC: Regular. Normal S1 and S2 with a fourth heart sound. A 1/6 early systolic apical murmur. ABDOMEN: Soft. EXTREMITIES: No edema. IMPRESSION: 1. Stable angina. No signs of acute congestive heart failure. 2. Degenerative valve disease with compensated mitral regurgitation. 3. Hypertensive heart disease with controlled blood pressure. PLAN: Discharge on current medications. Outpatient cardiac followup arranged. Physical and occupational therapy with fall precautions. Speedy Valentin M.D. DR: Nica JOB#: [id number] CC:
--- NOTE | 2016-08-25 13:06 | Discharge Summary ---
Discharge Summary Hospital Course Date of Admission Aug 18, 2016 at 01:00 Date of Discharge Aug 24, 2016 at 09:54 Admitting Diagnosis Acute coronary syndrome MICHAEL English is a 86 year old male who was admitted on Aug 18, 2016 at 01:00 for Acute Coronary Syndrome. Patient states chest pain started yesterday afternoon. Pressure-like, substernal, nonradiating. Lasting for several days then subsiding. Patient denies any chest pain at this time. Given aspirin by EMS. Denies smoking or drug use. No other aggravating or relieving factors. Denies any other associated symptoms. Past Medical History: DM, HTN Past Surgical History: none Pertinent Family History: none Social History: Denies: alcohol use, drug use, smoking Immunizations: UTD Reviewed Nursing Documentation: PMH: Agreed, PSxH: Agreed Nursing Documentation-PMH Hx Cardiac Problems: No Hx Hypertension: Yes Hx Pacemaker: No Hx Asthma: No Hx COPD: No Hx Diabetes: Yes Hx Cancer: Yes - Prostate Hx Gastrointestinal Problems: Yes - Acid Reflux Hx Dialysis: No Hx Neurological Problems: No Hx Cerebrovascular Accident: No Hx Seizures: No Consultations Cardiology Procedures EKG Diagnostic Results Rate: normal Rhythm: NSR ST Segments: no acute changes ASA given to the pt in ED: No - given by ems Rhythm Strip Diag. Results EP Interpretation: yes Rhythm: NSR, no PVC's, no ectopy Chest X-Ray Diagnostic Results EP Interpretation: Yes Findings: no consolidation, no effusion, no pneumothorax, no acute cardiopulmonary disease Number of Views: 1 Service Date: 08/22/16 Procedure: CT Head no Contrast Indication: Head pain and altered mental status Impression: No evidence of acute intracranial hemorrhage, mass effect or cortical edema. Left periorbital soft tissue swelling without skull fracture. Other stable findings as above. Service Date: 08/18/16 Procedure: 2DEchocardiogram w/Doppler INDICATION - Angina Pectoris A color flow and spectral Doppler study was performed and revealed: Trace aortic regurgitation. Mild to moderate mitral regurgitation. Mitral diastolic velocities suggest reduced left ventricular relaxation (Grade I ). Mild tricuspid regurgitation. Tricuspid systolic velocities suggests peak right ventricular systolic pressure of 46 mmHg, consistent with moderate pulmonary hypertension. Trace pulmonic regurgitation present. Hospital Course Diagnostic Impression: Primary Impression: ACS (acute coronary syndrome) ER Course Hospital Course 86-year-old male presents ED complaining of intermittent substernal chest pain Differential diagnoses include: AL/unstable angina, contusion, muscle strain, PTX, rib fracture Clinical course Patient placed on stretcher. on business office manager. After initial history and physical I ordered labs, EKG, chest x-ray labs reviewed- no leukocytosis, hb/hct stable, electrolytes ok, trop negative EKG - NSR, no acute ischemic changes Chest x-ray- no acute process Diagnosis - ACS Admitted to telemetry in serious condition Initial Hospital Course LABORATORY DATA: Reviewed. CBC notably for hemoglobin 12.3, otherwise fairly benign. Electrolytes fairly normal however blood sugar 153. Troponin is negative. EKG noted and reviewed and at present the patient appears to be in normal sinus rhythm, no acute changes. Chest x-ray no acute changes. IMPRESSION: 1. Chest pain, possible acute coronary syndrome. 2. History of diabetes and hypertension. 3. Evidence of mild cough. RECOMMENDATIONS: Resume home medications. Beta-blockers, nitrates, subcutaneous heparin and aspirin. Serial troponin. Followup EKG. Obtain cardiology evaluation. Obtain blood sugar management and follow clinically. If cleared by Cardiology, we will proceed with discharge planning. Cardiology LABORATORY AND DIAGNOSTIC DATA: Troponin is negative. EKG sinus rhythm with nonspecific ST changes. Chemistry panel is within normal limits with the exception of glucose of 153. IMPRESSION: 1. Acute coronary syndrome. 2. Hypertension. 3. Type 2 diabetes mellitus. PLAN: 1. Cardiac monitoring. 2. Nasal oxygen. 3. Serial troponins. 4. Oral aspirin. 5. Beta blockade. 6. Topical nitrates. 7. Advance antihypertensive. 8. Echocardiogram will likely pursue noninvasive assessment of coronary flow reserve in order to risk stratify and guide long-term treatment even if noninvasive course of therapy is preferred. Final Hospital Course CARDIOLOGY IMPRESSION: 1. Stable angina. No signs of acute congestive heart failure. 2. Degenerative valve disease with compensated mitral regurgitation. 3. Hypertensive heart disease with controlled blood pressure. PLAN: Discharge on current medications. Outpatient cardiac followup arranged. Physical and occupational therapy with fall precautions. PRIMARY IMPRESSION: 1. Chest pain, possible acute coronary syndrome. 2. History of diabetes and hypertension. 3. Evidence of mild cough with improvement 4. pulmonary hypertension 5. foot pain 6. left eyelid swelling 7. constipation/vomiting >> dehydration PLAN care noted dc today patient wants to go home d/w brother home health on dc refuses rehab; aware of concerns of falls Final Diagnosis 1. Stable angina. No signs of acute congestive heart failure. 2. Degenerative valve disease with compensated mitral regurgitation. 3. Hypertensive heart disease with controlled blood pressure. 1. Chest pain, possible acute coronary syndrome. 2. History of diabetes and hypertension. 3. Evidence of mild cough with improvement 4. pulmonary hypertension 5. foot pain 6. left eyelid swelling 7. constipation/vomiting Discharge Medications Continued Medications: Al Hydroxide/mg Hydroxide (Mag-Al Liquid) 30 Ml Oral.susp 30 ML ORAL EVERY 4 HOURS, ML Aspirin (Aspirin) 81 Mg Tab.chew 81 MG PO DAILY, TAB Atenolol (Tenormin) 25 Mg Tablet 25 MG ORAL DAILY, TAB Gabapentin* (Gabapentin*) 300 Mg Capsule 600 MG ORAL THREE TIMES A DAY, CAP 0 Refills Lisinopril (Lisinopril*) 20 Mg Tablet 20 MG ORAL DAILY, TAB Pravastatin Sod* (Pravastatin Sod*) 20 Mg Tablet 40 MG ORAL BEDTIME, TAB Discontinued Medications: Amlodipine Besylate* (Amlodipine Besylate*) 5 Mg Tablet 5 MG ORAL DAILY, TAB Baclofen* (Baclofen*) 10 Mg Tablet 10 MG ORAL THREE TIMES A DAY, TAB Cetirizine Hcl (Cetirizine Hcl) 10 Mg Tablet 10 MG PO PRN, TAB Lisinopril (Lisinopril*) 5 Mg Tablet 10 MG ORAL DAILY, TAB Meclizine Hcl* (Meclizine*) 12.5 Mg Tablet 12.5 MG ORAL PRN, TAB Omeprazole (Omeprazole) 20 Mg Tablet.dr 20 MG ORAL DAILY, TAB Oxybutynin Chloride (Oxybutynin Chloride) 5 Mg Tablet 10 MG ORAL, #30 TAB 0 Refills Unable to Obtain Medications (Unable To Obtain Meds) 1 Ea Ea Discharge Condition Upon Discharge: stable Discharge Disposition Patient was discharged to Home with Home Health(06) Discharge Diagnoses: Discharge Instructions Discharge Instructions Special Instructions NURSE NOTES: Pt alert and oriented x4, made aware of discharge order, home with home health. Pt's father, Cedric, at bedside. All belongings accounted for. In stable condition. Pt was escorted to private vehicle by COMMERCIAL PROPERTY ADMINISTRATOR. IV site was discontinued. Pt made aware of appointment with Dr. Valentin, on September 03, [address]'s address. Pt and family verbalized understanding. Pt lost prescription given to him for prior discharge. Pt states he goes to [facility] on [address] [place] [address], [id number]. RN left message for Dr. Valentin to call in for prescription at pt's pharmacy . Pt left in stable condition. I have been assigned to the discharge summary of this patient and did not provide any care for the patient. Yris Street NP, N.P. Aug 25, 2016 13:06
== END 2016-08-24 09:54 | disposition home health service (06) | DRG 311 ==
LOC: EDUNIT# 00:20 → EDBD 00:20 → EMR 00:35 → 2E 01:00 → EDBEDREQ 02:56 → 4W 08-24 00:31
DX: I24.9 Acute ischemic heart disease, unspecified (principal); I27.2 Other secondary pulmonary hypertension; I11.0 Hypertensive heart disease with heart failure; I50.9 Heart failure, unspecified; I20.8 Other forms of angina pectoris; J20.9 Acute bronchitis, unspecified; E11.9 Type 2 diabetes mellitus without complications; Z85.46 Personal history of malignant neoplasm of prostate; K21.9 Gastro-esophageal reflux disease without esophagitis; I34.0 Nonrheumatic mitral (valve) insufficiency; M79.671 Pain in right foot; H02.846 Edema of left eye, unspecified eyelid
CPT/HCPCS: 36415; 70450; 71010; 80053; 80061; 82550; 82553; 82962; 83735; 83880; 84443; 84484; 84550; 85025; 93005; 93017; 93306; 93350; 94640; 94760; J1815; J2405; J7620

== ENCOUNTER 2016-11-18 14:02 | Emergency (ER) | payer MEDICARE ==
[~2016-11-18] VITALS: Ht 170.2 cm; Wt 64.9 kg
[~2016-11-18 14:02] MED LIST: AMLODIPINE BESYL5 MG ORAL; ASPIRIN81 M3 PO; ATORVASTATIN CA10 MG ORAL; BACLOFEN10 MG ORAL; CETIRIZINE HCL10 MG PO; DITROPAN XL10 MG ORAL; GABAPENTIN300 MG ORAL; LISINOPRIL20 MG ORAL; LISINOPRIL5 MG ORAL; MECLIZINE HCL12.5 MG ORAL; MYLANTA30 M1 ORAL; Metoclopramide 10mg/2ml Inj IVP ONE; OMEPRAZOLE20 M2 ORAL; OMEPRAZOLE20 M3 ORAL; OXYBUTYNIN CHLOR5 M1 ORAL; PRAVASTATIN SOD20 M1 ORAL; PRAVASTATIN SOD40 M1 ORAL; SENNOSIDES8.6 MG ORAL; TENORMIN25 MG ORAL; UNOBMED
--- NOTE | 2016-11-18 14:03 | Emergency Room Report ---
History of Present Illness General Chief Complaint: Hypertension Source: Patient, EMS Present Illness HPI Patient is an 86-year-old male who presented after having worsening headache. Headache was a left-sided frontal in nature. He denies any visual changes. Patient had gradual onset of headache over the past 2 weeks. Patient reports having had no weakness he states he had the prior history of hypertension. He denies any recent trauma. He states he was at the [facility] in [place] yesterday for similar symptoms however today's headache was worse Allergies: Coded Allergies: No Known Allergies (Verified , 01/25/10) Patient History Past Medical History: see triage record Reviewed Nursing Documentation: PMH: Agreed, PSxH: Agreed Nursing Documentation-PMH Past Medical History: No History, Except For Hx Hypertension: Yes Hx Diabetes: Yes Review of Systems All Other Systems: negative except mentioned in HPI Physical Exam Vital Signs Date Time Temp Pulse Resp B/P Pulse Ox O2 Delivery O2 Flow Rate FiO2 11/18/16 13:52 98.1 79 14 210/105 99 Room Air Sp02 EP Interpretation: reviewed, normal General Appearance: normal inspection, well appearing, no apparent distress, alert, GCS 15, non-toxic Head: atraumatic ENT: normal ENT inspection, hearing grossly normal, normal voice Neck: normal inspection, full range of motion, supple, no bony tend Respiratory: normal inspection, lungs clear, normal breath sounds, no respiratory distress, no retraction, no wheezing Cardiovascular #1: regular rate, rhythm, no edema Gastrointestinal: normal inspection, normal bowel sounds, non tender, soft, no guarding, no hernia Genitourinary: no CVA tenderness Musculoskeletal: normal inspection, back normal, normal range of motion Neurologic: normal inspection, alert, oriented x3, responsive, management nurse rn III-XII nml as tested, speech normal Psychiatric: normal inspection, judgement/insight normal, mood/affect normal Skin: normal inspection, normal color, no rash Medical Decision Making Diagnostic Impression: Primary Impression: Headache Additional Impression: Hypertension ER Course Patient presented for headache. Differential diagnoses included but was not limited to skull fracture, subarachnoid hemorrhage, meningitis, aneurysm, mass lesion, intracranial hemorrhage. Because of complexity of patient's case laboratory testing and imaging studies were ordered.A CT of the head read by radiologist showed no evidence of acute CVA or hemorrhage. Patient was given pain medications. The patient did have a chronic sounding headache which likely requires further outpatient testing with his primary care physician's patient was given blood pressure medications which helped control his blood pressure adequately. He was advised followup with his primary care physician for further evaluation and treatment. Last Vital Signs Date Time Temp Pulse Resp B/P Pulse Ox O2 Delivery O2 Flow Rate FiO2 11/18/16 13:52 98.1 79 14 210/105 99 Room Air Status: improved Disposition: HOME, SELF-CARE Condition: Stable Scripts Acetamin/Butalbital/Caffeine* (FIORICET*) 1 Ea Tab 1 TAB ORAL Q6H, #10 TAB 0 Refills Prov: Rafi Noland 11/18/16 Rafi Noland Nov 18, 2016 14:03
[2016-11-18 14:43] VITALS: BP 141/74
[2016-11-18 14:46] LABS: BASOPHILS % (AUTO) 0.7 % (0.0-2.0); LYMPHOCYTES % (AUTO) 23.9 % (20.0-45.0); MEAN CORPUSCULAR HEMOGLOBIN 29.2 PG (27.0-31.0); MEAN CORPUSCULAR HGB CONC 33.3 G/DL (32.0-36.0); MEAN CORPUSCULAR VOLUME 88 FL (80-99); MONOCYTES % (AUTO) 9.1 % (1.0-10.0); NEUTROPHILS % (AUTO) 65.3 % (45.0-75.0); PLATELET COUNT 175 K/UL (150-450); RED BLOOD COUNT 4.32 M/UL (4.70-6.10); RED CELL DISTRIBUTION WIDTH 11.9 % (11.6-14.8); WHITE BLOOD COUNT 4.2 K/UL (4.8-10.8)
[2016-11-18 15:02] LABS: ALANINE AMINOTRANSFERASE 12 U/L (3-41); ALBUMIN/GLOBULIN RATIO 1.3 (1.0-2.7); ANION GAP 13 (5-15); ASPARTATE AMINO TRANSFERASE 14 U/L (5-40); CALCIUM 9.1 mg/dL (8.6-10.2); CARBON DIOXIDE 24 mEQ/L (20-30); CHLORIDE 102 mEQ/L (98-107); CREATININE 0.9 mg/dL (0.7-1.2); HEMOLYSIS 6; POTASSIUM 3.6 mEQ/L (3.4-4.9); SODIUM 139 mEQ/L (135-145); TOTAL PROTEIN 6.6 g/dL (6.6-8.7); TROPONIN I < 0.30 ng/mL (<=0.30)
[2016-11-18] MEDS ORDERED: Ketorolac 30mg Inj IV ONE (16:15)
[2016-11-18] MEDS ORDERED: FIORICET1 EA ORAL (16:18)
[2016-11-18 16:39] VITALS: BP 141/78
[2016-11-18 16:41] VITALS: BP 141/78
[2016-11-18 17:11] LABS: APPEARANCE,URINE CLEAR; KETONES,URINE 1+ (NEGATIVE); LEUKOCYTE ESTERASE ,URINE NEGATIVE (NEGATIVE); NITRITE,URINE NEGATIVE (NEGATIVE); PH,URINE 7 (4.5-8.0); PROTEIN,URINE NEGATIVE (NEGATIVE); UROBILINOGEN,URINE NORMAL MG/DL (0.0-1.0)
[2016-11-18 17:20] LABS: RBC,URINE 0-2 /HPF (0 - 0); SQUAMOUS EPITHELIAL CELL,UR OCCASIONAL /LPF (NONE/OCC); WBC,URINE 0 /HPF (0 - 0)
== END 2016-11-18 16:42 | disposition home or self-care (01) ==
LOC: EDBD 14:02 → EMR 14:20
DX: R51 Headache (principal); I10 Essential (primary) hypertension; E11.9 Type 2 diabetes mellitus without complications
CPT/HCPCS: 36415; 70450; 80053; 81001; 84484; 85025; 85651; 96374; 96375; 99284; J1885; J2765